=== PATIENT | male | born 1965 | race Caucasian/White ===

== ENCOUNTER 2022-09-16 19:30 | Emergency (ER) | payer OTHER ==
[2022-09-16] MEDS ORDERED: VALSARTAN 80 MG TABLET PO ONE (19:47)
[2022-09-16 20:04] VITALS: TEMP 98; BMI 32.0
[2022-09-16 20:18] LABS: HEMATOCRIT 41.5 % (35.4-49); HEMOGLOBIN 14.4 G/dL (11.7-16.9); MCHC 34.6 g/dl (32.0-35.9); MEAN CELL VOLUME 92.4 fl (80-96); MEAN PLT VOLUME 9.9 fl (7.5-11.1); PLATELET COUNT 184.5 10^3/uL (134-434); RBC 4.49 10^6/uL (4.00-5.60); RDW 14.5 % (11.9-15.9); WHITE BLOOD COUNT 7.9 10^3/uL (4.0-10.8)
[2022-09-16 20:35] LABS: ALBUMIN 3.6 g/dl (3.4-5.0); CALCIUM 8.8 mg/dl (8.5-10); CREATININE 1.3 mg/dl (0.55-1.3); TOT PROT 6.5 g/dl (6.4-8.2)
[2022-09-16 20:52] VITALS: BP 196/99; PULSE 59; RESP 18
== END 2022-09-16 20:53 | disposition home or self-care (01) ==
LOC: FER 19:30
DX: I10 Essential (primary) hypertension (principal)
CPT/HCPCS: 36415; 80053; 85025; 99284-25